=== PATIENT | female | born 1975 | race Caucasian/White ===

== ENCOUNTER 2023-07-15 20:55 | Observation (INO) | payer BC, SELFPAY ==
[2023-07-15] VITALS (9 sets, daily range): BP systolic 133–173; BP diastolic 82–106; BMI 19.6
[2023-07-15] MEDS: NSS 1000 IV ×2 (15:43→22:09)
--- NOTE | 2023-07-15 15:50 | ED.GENMED ---
History of Present Illness
General
Chief Complaint: Facial Problem
Time Seen by Provider: 07/15/23 15:22
Travel History
Have you had any contact with someone who has COVID-19?: No
Do you have any symptoms of coronavirus? Fever > 100 degrees, chills, cough, shortness of breath, sore throat, loss of taste or smell, muscle aches, or headache?: No
History of Present Illness
History of Present Illness:
48 yo female w/ hx of trigeminal neuralgia presents for evaluation of intractable pain. Recommended to receive 20mg/kg IV fosphenytoin load by pain specialist.
Review of Systems
Review of Systems
Allergies reviewed?: Yes
All Other Systems: ROS reviewed and negative except as documented in HPI and ROS
Phy Exam
Physical Exam
Physical Exam:
GEN: Well appearing, NAD, WDWN. Appears uncomfortable
HEENT: Oral mucosa moist, no scleral icterus
Cardiac: Regular rate
Lung: No respiratory distress, no tachypnea
MSK: No gross deformity or injuries
Skin: Good color, no pallor or jaundice, no rashes
Neuro: AO x3, moves all extremities freely
Psych: Calm, cooperative
Course
Orders/Labs/Results
Orders:
Orders
07/15/23 15:31
0.9% Sodium Chloride 1000 ml [Nss] 1,000 ml IV BOLUS
07/15/23 15:42
Complete Blood Count/With Diff Urgent
Comprehensive Metabolic Panel Urgent
Urinalysis Reflex To Culture Urgent
Date Specimen was Collected: 07/15/23
Time Specimen was Collected: 15:35
Urine Microscopic Reflex Cult Urgent
07/15/23 16:05
Fosphenytoin 50 mg PE/ml [Cerebyx] 1,000 mg 0.9% Sodium Chloride 100 ml [Nss] 100 ml IV NOW
07/15/23 17:36
Dexamethasone Sod Phosphate [Decadron] 4 mg IV NOW STA
07/15/23 18:19
dimenhyDRINATE 12.5 mg IV NOW STA
07/15/23 18:28
Sterile Water [Sterile Water For Injection] 10 ml .ROUTE .STK-MED ONE
07/15/23 19:09
dimenhyDRINATE 25 mg IV NOW STA
07/15/23 19:11
Phenytoin [Dilantin] Routine
Comment: DRAW 1 HOUR AFTER ADMINISTRATION OF FOSPHENYTOIN LOAD
07/15/23 20:23
Admit/Transfer Patient As Directed
Co-Sign Provider:
Level of Care: Observation services
Assign to:: Medical/Surgical
Physician / Group: [id number]
Diagnosis: Dizziness/Trigeminal Neuralgia
07/15/23 20:25
Code Status As Directed
Resuscitation Status: Full Code
07/15/23 20:39
0.9% Sodium Chloride 1000 ml [Nss] 1,000 ml IV 75 mls/hr
Meclizine [Antivert] 25 mg PO Q8HPRN PRN
Ondansetron Injectable [Zofran] 4 mg IV Q6HPRN PRN
sumatriptan succinate 100 mg PO DAILY PRN
07/15/23 20:39
Pneumatic Compression Sleeves As Directed
Type: Knee high
Vital Signs As Directed
Frequency: Per unit guidelines
07/15/23 22:00
Acyclovir [Zovirax] 200 mg PO TID
Gabapentin [Neurontin] 300 mg PO QID
Oxcarbazepine [Trileptal] 300 mg PO QID
gabapentin 600 mg PO QID
07/16/23 08:00
lamotrigine 150 mg PO BID
Orthostatic Vital Signs As Directed
Orthostatic VS Frequency: Daily
Abnormal Lab Results
07/15/23 07/15/23
15:42 19:11
MCH 31.8 H pg
(27.0-31.0)
MPV 11.0 H fL
(7.4-10.4)
Sodium 130 L mmol/L
(135-145)
Chloride 94 L mmol/L
(98-107)
BUN 5 L mg/dl
(7-17)
Creatinine 0.5 L mg/dL
(0.6-1.0)
Albumin 5.3 H g/dl
(3.5-5.0)
Ur Occult Blood Reflex Trace A
(Negative)
Phenytoin 27.8 H ug/ml
(10-20)
07/15/23 15:42
07/15/23 15:42
Vital Signs
Initial and Last Documented VS:
Initial Vital Signs
Temp Pulse Resp BP Pulse Ox
98.7 F 96 16 173/106 97
07/15/23 14:22 07/15/23 14:22 07/15/23 14:22 07/15/23 14:22 07/15/23 14:22
Last Documented Vital Signs
Temp Pulse Resp BP Pulse Ox
98.7 F 68 11 149/82 98
07/15/23 14:22 07/15/23 19:16 07/15/23 19:16 07/15/23 19:11 07/15/23 17:50
MDM/Problems Addressed
MDM/Problems Addressed:
Pt unfortunately experienced side effect of nystagmus/severe vertigo, failed antihistamine therapy. At this point is too vertiginous to be d/c, will place is observation until side effect improves.
*Critical Care Note
Total Time (30-74mins, 75-104mins- exclusive of procedures): Not Applicable
ED Attending Note
-
Portions of this chart may have been created with voice recognition software.� Occasional wrong word or��sound alike� substitutions may have occurred due to the inherent limitations of voice recognition software.
Discharge Plan
Departure
Patient Disposition: Admit
Date of Disposition: 07/15/23
Time of Disposition: 20:04
Admit to: Med/Surg
Presentation/result/management discussed w/ accepting MD/DO: Hospitalist
Discharge Problem:
Vertigo, Trigeminal neuralgia
Interventions
Interventions:
*Risk Screen - Suicide Last Done: 07/15/23 15:20
*General Assessment Last Done: 07/15/23 15:20
*Neglect/Abuse Screening Last Done: 07/15/23 15:20
ED- Fall Risk Assessment Last Done: 07/15/23 15:21
*ED COVID-19 Vaccine History Last Done: 07/15/23 14:22
ED- Neurological Assessment Last Done: 07/15/23 15:20
ED-Skin Assessment Last Done: 07/15/23 15:21
[2023-07-15 15:55] LABS: % Basophils 0.2 % (0-2); % Immature Granulocytes 0.3 % (0-0.5); % Monocytes 8.6 % (1.7-9.3); % Neutrophils 61.9 % (42.2-75.2); Absolute Lymphocytes 1.7 10^3/uL (1.2-3.4); Absolute Monocytes 0.5 10^3/uL (0.1-0.6); Absolute Neutrophils 3.6 10^3/uL (1.4-6.5); Hematocrit 38.1 % (37.0-47.0); Hemoglobin 13.4 g/dL (12.0-16.0); Mean Corp Hgb Conc. 35.2 g/dL (33.0-37.0); Mean Corpuscular Hgb 31.8 pg (27.0-31.0); Mean Corpuscular Volume 90.3 fL (81.0-99.0); Nucleated Red Blood Cells % 0 %; Platelet Count 213 10^3/uL (130-400); Red Blood Cell Count 4.22 10^6/uL (4.20-5.40); Red Cell Dist. Width 11.7 % (11.5-14.5); White Blood Cell Count 5.8 10^3/uL (4.8-10.8)
[2023-07-15 16:04] LABS: Urine Albumin Negative (Neg - Trace); Urine Bilirubin Negative (Negative); Urine Character Clear (Clear); Urine Color Yellow; Urine Glucose Negative (Negative); Urine Ketone Negative (Negative); Urine Leukocyte Negative (Negative); Urine Nitrite Negative (Negative); Urine Occult Blood Trace (Negative); Urine Urobilinogen Negative (Neg - 1+)
[2023-07-15 16:10] LABS: ALT (SGPT) 20 U/L (0-35); AST (SGOT) 28 U/L (14-36); Albumin 5.3 g/dl (3.5-5.0); Alkaline Phosphatase 71 U/L (38-126); Blood Urea Nitrogen 5 mg/dl (7-17); Calcium 9.3 mg/dl (8.4-10.2); Carbon Dioxide 28 mmol/L (22-30); Chloride 94 mmol/L (98-107); Estimated Creatinine Clearance 101 ml/min; Glucose 88 mg/dl (70-99); Sodium 130 mmol/L (135-145); Total Bilirubin 0.6 mg/dl (0.2-1.3); Total Protein 8.1 g/dl (6.3-8.2); eGFR > 60.00
[2023-07-15 16:13] LABS: Urine Red Blood Cell 0-2 /HPF (0-2); Urine Squamous Cell 0-2 /LPF (Few); Urine White Cell None Seen /HPF (0-5)
[2023-07-15] MEDS: CEREBYX 120 MG IV (16:40)
[2023-07-15] MEDS: DECADRON 4 MG IV (18:00)
[2023-07-15] MEDS: dimenhyDRINATE 12.5 MG IV (18:43)
[2023-07-15] MEDS: dimenhyDRINATE 25 MG IV (19:22)
[2023-07-15 19:38] LABS: Dilantin 27.8 ug/ml (10-20)
--- NOTE | 2023-07-15 20:40 | HPS.HSE ---
Addendum entered and electronically signed by Goyo Calderon DO 07/15/23 21:26:
Patient seen and examined independently. Agree with findings and plan as set forth by Hayley Hardy PA-C.
Patient is a 48y F with PMH significant for severe trigeminal neuralgia who presented to the ED today at the direction of her Pain Management physician for fosphenytoin infusion / load for persistent / severe TN symptoms. Patient states that she
has had TN for 20 years. She reports severe symptoms for the past 2 weeks including inability to speak due to pain. Patient received the infusion in the ED and began to experience dizziness, confusion and diplopia. Patient does note that her TN
symptoms have improved following the infusion.
Ass:
Dizziness, Confusion
Severe Trigeminal Neuralgia
Plan:
Observe overnight for resolution of acute symptoms.
Suspect that dizziness, confusion, etc are side effects of fosphenytoin infusion.
Symptomatic treatment including meclizine, IVFs, etc.
Continue usual home med regimen for TN pain control.
Monitor for any new / worsening symptoms.
If acute symptoms are improved in AM - discharge for outpatient follow-up with Dr. Stein.
Original Note:
Family Physician
-
Family Physician: NOT KNOW UNKNOWN - PT DOES
Chief Complaint
-
Dizziness
History of Present Illness
Patient is a 48 y/o female with a past medical history of trigeminal neuralgia who was sent to the emergency department by Dr. Stein to receive IV fosphenytoin for severe facial pain that prevented her from talking for approximately 2 weeks.
After receiving this medication, she began experiencing dizziness, diplopia, and gait dysfunction. While speaking with the patient, she admits to feeling confused and like she is 'drunk.' She denies chest pain and palpitations.
Medical History
Past Medical History
Past Medical History: Reports Other
Additional Past Medical History:
Trigeminal Neuralgia
Past Surgical History: Reports Other
Additional Past Surgical History:
Multiple brain surgeries for trigeminal neuralgia
Social History
Tobacco: Non-smoker
Alcohol: None
Drug: None
Living: With Family
Family History
Family History: Not pertinent
Allergies / Home Medications
Allergies reflects when Allergies were last updated in [email or web address].
Home Medications with original date entered in [email or web address]
Allergy/Medication List:
Allergies
Allergy/AdvReac Type Severity Reaction Status Date / Time
Penicillins Allergy Unknown Verified 07/15/23 14:23
Home Medications
acyclovir 200 mg capsule 200 mg PO TID 07/15/23
ergocalciferol (vitamin D2) 1,250 mcg (50,000 unit) capsule 1,250 mcg PO MO 07/15/23
gabapentin 300 mg capsule 300 mg PO QID 07/15/23
gabapentin 600 mg tablet 600 mg PO QID 07/15/23
lamotrigine 150 mg tablet 150 mg PO BID 07/15/23
ondansetron HCl 4 mg tablet 4 mg PO Q8H PRN nausea 07/15/23
oxcarbazepine 300 mg tablet 300 mg PO QID 07/15/23
sumatriptan succinate 100 mg tablet 100 mg PO DAILY PRN migraine 07/15/23
Review of Systems
-
A 12 point ROS was completed and negative except as noted: Yes
Constitutional: Denies Fever or Chills
Respiratory: Denies Cough or Trouble Breathing
Cardiac: Denies Chest Pain or Palpitations
Neurological: Reports See HPI
Physical Exam
Vital Signs
Vital Signs
Temp Pulse Resp BP Pulse Ox
98.7 F 68 11 149/82 98
07/15/23 14:22 07/15/23 19:16 07/15/23 19:16 07/15/23 19:11 07/15/23 17:50
Physical Exam
General: Well Developed, Well Nourished and Conversant
HEENT: Anicteric and Moist mucous membranes
Respiratory: Clear and Non Labored Respirations
Cardiac: S1/S2 and Regular Rhythm
GI: Soft and Non Tender
Rectal: Deferred by Provider
Musculoskeletal: No Clubbing and No Cyanosis
Skin: Warm and Dry
Neuro: Awake, Alert, Oriented and Other (Moves all four extremities appropriately; Unable to ambulate with nursing staff to difficulty with balance)
Laboratory Results
-
07/15/23 15:42
07/15/23 15:42
Laboratory Results
Total Bilirubin 0.6 mg/dl (0.2-1.3) 07/15/23:42
AST 28 U/L (14-36) 07/15/23 15:42
ALT 20 U/L (0-35) 07/15/23 15:42
Alkaline Phosphatase 71 U/L (38-126) 07/15/23 15:42
Data Reviewed
-
Lab Data: Labs Reviewed by me
Impression/Plan
-
Adverse Reaction to Fosphenytoin Infusion
-Continue meclizine for dizziness/vertigo
-Continue IVFs
-Monitor symptoms for improvement overnight
Trigeminal Neuralgia
-Continue Gabapentin, Lamotrigine and Oxcarbazepine
DVT proph: SCDs
Code Status: Full Code
[2023-07-15] MEDS: ZOVIRAX 200 MG PO (22:08)
[2023-07-15] MEDS: TRILEPTAL 300 MG PO (22:08)
[2023-07-15] MEDS: NEURONTIN 900 MG PO (22:09)
[2023-07-15] MEDS: LAMICTAL 150 MG PO (22:09)
[2023-07-16] MEDS: ZOFRAN 4 MG IV (06:35)
[2023-07-16] MEDS: IMITREX 100 MG PO (06:38)
[2023-07-16 07:06] LABS: Hemoglobin 12.8 g/dL (12.0-16.0); Mean Corp Hgb Conc. 34.6 g/dL (33.0-37.0); Mean Corpuscular Hgb 31.6 pg (27.0-31.0); Mean Corpuscular Volume 91.4 fL (81.0-99.0); Platelet Count 213 10^3/uL (130-400); Red Blood Cell Count 4.05 10^6/uL (4.20-5.40); Red Cell Dist. Width 11.7 % (11.5-14.5); White Blood Cell Count 6.3 10^3/uL (4.8-10.8)
[2023-07-16 07:40] LABS: Blood Urea Nitrogen 5 mg/dl (7-17); Calcium 9.2 mg/dl (8.4-10.2); Carbon Dioxide 21 mmol/L (22-30); Chloride 103 mmol/L (98-107); Estimated Creatinine Clearance 101 ml/min; Glucose 87 mg/dl (70-99); Magnesium 2.1 mg/dl (1.6-2.3); Potassium 4.2 mmol/L (3.5-5.1); Sodium 134 mmol/L (135-145); eGFR > 60.00
[2023-07-16 08:01] VITALS: BP 143/92
[2023-07-16] MEDS: LAMICTAL 150 MG PO (08:05)
[2023-07-16] MEDS: ZOVIRAX 200 MG PO (09:11)
[2023-07-16] MEDS: TRILEPTAL 300 MG PO ×2 (09:11→12:29)
[2023-07-16] MEDS: NEURONTIN 900 MG PO ×2 (09:12→12:11)
[2023-07-16 10:23] VITALS: BP 155/96
[2023-07-16 10:27] VITALS: BP 155/96
[2023-07-16 10:49] VITALS: BP 120/93; BP 134/90; BP 136/93; PULSE 72; PULSE 77; PULSE 86
--- NOTE | 2023-07-16 12:38 | W.PN.HOSP.TC ---
Today's Communication/Plan
-
d/c
Assessment / Plan
Assessment / Plan
Gen: NAD, AAOx3.
Eyes: EOMI, PERRLA, no scleral icterus.
Neck: supple.
CV: RRR, +S1/S2, no m/r/g.
Resp: CTAB, no rales, wheezes, or rhonchi.
Abd: +BS, soft, NT, ND
Skin: No rashes.
Neuro: CN 2-12 intact, non-focal.
Psych: Normal mood and affect.
Dizziness and confusion likely due to adverse reaction to fosphenytoin infusion:
-Patient with underlying trigeminal neuralgia for the last 20 years
-Continue Gabapentin, Lamotrigine and Oxcarbazepine
-symptoms resolved
FULL/SCDs
Anticipated Discharge: Today
Subjective/Interval History
-
Date of Service: July 16, 2023
Currently dizziness and confusion have resolved.
Objective Data
-
Labs:
Laboratory Results
07/16/23
06:27
WBC 6.3
Hgb 12.8
Hct 37.0
Plt Count 213
Sodium 134 L
Potassium 4.2
Chloride 103
Carbon Dioxide 21 L
BUN 5 L
Creatinine 0.4 L
Glucose 87
Calcium 9.2
Vital Signs:
Vital Signs
Temp Pulse Resp BP Pulse Ox
98.4 F 81 16 143/92 97
07/16/23 08:01 07/16/23 08:01 07/16/23 08:01 07/16/23 08:01 07/16/23 08:01
I&O
07/15/23 07/16/23 07/17/23
06:59 06:59 06:59
Intake Total 900 / 900
Balance 900 / 900
--- NOTE | 2023-07-16 13:41 | W.DCSUMMARY ---
Discharge Summary
Discharge Data
Date of Admission: 07/15/23
Date of Discharge: 07/16/23
-
Pending Results: No
Hospital Course
Primary diagnoses:
Dizziness and confusion likely due to adverse reaction to fosphenytoin infusion
Secondary diagnoses:
Trigeminal neuralgia
Consultants:
None
Imaging:
None
Hospital course: 48-year-old female who was admitted yesterday with chief complaints of persistent trigeminal neuralgia symptoms as outlined in the H&P done on admission. She had a fosphenytoin infusion and then had dizziness, confusion, diplopia.
Her symptoms resolved afterwards and did not recur. She was discharged in medically stable condition.
Discharge Plan
-
Patient Disposition: Home (Routine Discharge)
Discharge Diagnosis/Procedures: Dizziness and confusion likely due to adverse reaction to fosphenytoin infusion
Condition: Good
Diet: No restrictions
Activity: No restrictions
Driving Restrictions: As prior to admission
Referrals:
UNKNOWN - PT DOES,NOT KNOW [Family Provider] -
Prescriptions:
Continued
lamotrigine 150 mg tablet
150 mg PO BID
gabapentin 600 mg tablet
600 mg PO QID
Patient Comments:
07/15/2023: taken w/ 300mg = 900mg
ondansetron HCl 4 mg tablet
4 mg PO Q8H PRN (Reason: nausea)
oxcarbazepine 300 mg tablet
300 mg PO QID
gabapentin 300 mg capsule
300 mg PO QID
Patient Comments:
07/15/2023: taken w/ 600mg = 900mg
acyclovir 200 mg capsule
200 mg PO TID
ergocalciferol (vitamin D2) 1,250 mcg (50,000 unit) capsule
1,250 mcg PO MO
sumatriptan succinate 100 mg tablet
100 mg PO DAILY PRN (Reason: migraine)
Discharge Orders:
Discharge Patient (As Directed); Ordered 07/16/23
Ordered By: Anastacio Flanagan
Discharge Date and Time
Print Language: MONGOLIAN
[2023-07-16 14:27] VITALS: BP 144/92
[2023-07-16] MEDS: NSS IV (14:35)
[2023-07-16 15:01] VITALS: BP 144/92
== END 2023-07-16 15:03 | disposition home or self-care (01) ==
LOC: ED 20:55
PROVIDERS: Physician Assistant; Physician Assistant Medical; ADMITTING PHYSICIAN Hospitalist; ATTENDING PHYSICIAN Internal Medicine; EMERGENCY PHYSICIAN Emergency Medicine
DX: G50.0 Trigeminal neuralgia (principal); T42.0X5A Adverse effect of hydantoin derivatives, initial encounter; R42 Dizziness and giddiness; R41.0 Disorientation, unspecified; R51.9 Headache, unspecified; H55.00 Unspecified nystagmus; H53.2 Diplopia; R26.9 Unspecified abnormalities of gait and mobility; Y92.239 Unspecified place in hospital as the place of occurrence of the external cause; Z88.0 Allergy status to penicillin; Z79.624 Long term (current) use of inhibitors of nucleotide synthesis
CPT/HCPCS: 80048; 80053; 80185; 81003; 81015; 83735; 85025; 85027; 96361; 96365; 96375; 96376; 97162; 99284; G0378; J1240